=== PATIENT | female | born 1945 | race Asian ===

== ENCOUNTER 2021-10-10 17:29 | Inpatient (IN) | payer OTHER ==
[2021-10-10] MEDS ORDERED: morphine CARPU-JECT 2 MG/1 ML DISP.SYRIN IVPUSH ONE (18:40)
[2021-10-10] MEDS ORDERED: PIPERACILLIN/TAZOB 3.375 GM 3.375 GM in DEXTROSE 5%-WATER - 50 ML IVPB ONE (18:44)
[2021-10-10] MEDS ORDERED: SODIUM CHLORIDE 0.9% 500 ML INFUS.BAG IV ONE ×2 (18:44→21:07)
[2021-10-10] MEDS ORDERED: PIPERACILLIN/TAZOB 3.375 GM 3.375 GM/50 ML BAG IVPB ONE (19:14)
[2021-10-10 19:44] LABS: BASO % 0.1 % (0-2.0); EOS % 0.1 % (0-4.5); HEMATOCRIT 36.1 % (32.4-45.2); HEMOGLOBIN 11.7 GM/dL (10.7-15.3); LYMPH % 6.2 % (8-40); MCHC 32.5 g/dl (32.0-36.0); MEAN CELL VOLUME 95.2 fl (80-96); MEAN PLT VOLUME 8.4 fl (7.5-11.1); MONO % 4.7 % (3.8-10.2); NEUT % 88.9 % (42.8-82.8); PLATELET COUNT 223 10^3/uL (134-434); RBC 3.79 M/mm3 (3.60-5.2); RDW 13.2 % (11.6-15.6); WHITE BLOOD COUNT 18.5 K/mm3 (4.0-10.0)
[2021-10-10 19:56] LABS: INR 1.15 (0.83-1.09); PROTHROMBIN TIME (PATIENT) 13.2 SEC (9.7-13.0)
[2021-10-10 19:58] LABS: ACTIVATED PTT 29.1 SECONDS (25.2-36.5)
[2021-10-10 20:12] LABS: CALCIUM 8.9 mg/dL (8.5-10.1)
[2021-10-10 20:13] LABS: ALBUMIN 3.2 g/dl (3.4-5.0); BLOOD UREA NITROGEN 11.3 mg/dL (7-18)
[2021-10-10 20:16] LABS: CREATININE 0.8 mg/dL (0.55-1.3)
[2021-10-10 20:17] LABS: LACTIC ACID 2.2 mmol/L (0.4-2.0); TOT PROT 6.6 g/dl (6.4-8.2)
[2021-10-10 20:18] LABS: BILIRUBIN,TOTAL 1.4 mg/dL (0.2-1)
[2021-10-10 20:51] LABS: ANISOCYTOSIS 0; MACROCYTOSIS 0; PLATELET ESTIMATE NORMAL
[2021-10-10] MEDS ORDERED: VANCOMYCIN 1 GM in D5W (PRE-DOCKED) 1,000 MG/250 ML IVPB SCH (23:45)
[2021-10-10 23:55] LABS: EPI CELLS 9 /uL (0-25.1); HYALINE CASTS 3 /uL (0-3.1); URINE APPEARANCE Clear; URINE BACTERIA 278 /uL (0-1359); URINE BILIRUBIN Negative (NEGATIVE); URINE COLOR Yellow; URINE GLUCOSE (UA) Negative (NEGATIVE); URINE KETONE Negative (NEGATIVE); URINE LEUK ESTERASE NEGATIVE (NEGATIVE); URINE NITRITE Negative (NEGATIVE); URINE PROTEIN Trace (NEGATIVE); URINE RBC 21 /uL (0-23.9); URINE WBC 214 /uL (0-25.8)
[2021-10-11] MEDS ORDERED: VANCOMYCIN 1 GRAM (PRE-DOCKED) 1,000 MG/250 ML BAG IVPB SCH (00:15)
[2021-10-11] MEDS ORDERED: VANCOMYCIN 750 MG in DEXTROSE 5%-WATER - 150 ML IVPB SCH (00:30)
[2021-10-11 00:42] LABS: LACTIC ACID 2.8 mmol/L (0.4-2.0)
[2021-10-11] MEDS: SODIUM CHLORIDE 1,000 ML IV SCH ×2 (01:00→16:02)
[2021-10-11] MEDS ORDERED: PIPERACILLIN/TAZOB 3.375 GM 3.375 GM/50 ML BAG IVPB ONE ×2 (01:24→09:09)
[2021-10-11] MEDS ORDERED: VANCOMYCIN 1 GRAM (PRE-DOCKED) 1,000 MG/250 ML BAG IVPB ONE (01:24)
[2021-10-11] MEDS: PIPERACILLIN/TAZOB 3.375 GM 3.375 GM in DEXTROSE 5%-WATER - 50 ML IVPB SCH ×5 (03:00→18:28)
[2021-10-11] MEDS ORDERED: ENOXAPARIN NA (PORCINE) 40 MG/0.4 ML DISP.SYRIN SQ ONE (09:09)
[2021-10-11 09:56] LABS: LACTIC ACID 3.3 mmol/L (0.4-2.0)
[2021-10-11] MEDS: ENOXAPARIN NA (PORCINE) 40 MG/0.4 ML DISP.SYRIN SQ SCH ×2 (11:09→12:36)
[2021-10-11] MEDS ORDERED: DEXTROSE 5%-WATER - 50 ML IVPB ONE ×2 (12:22→16:45)
[2021-10-11] MEDS ORDERED: PIPERACILLIN/TAZOBACTAM 3.375 GM VIAL IVPB ONE ×2 (12:22→16:45)
[2021-10-11] MEDS ORDERED: ACETAMINOPHEN 1000 MG/100 ML BAG IVPB PRN (14:44)
[2021-10-11 15:26] VITALS: BMI 26.6
[2021-10-11 16:38] LABS: BASO % 0.2 % (0-2.0); EOS % 0.1 % (0-4.5); HEMATOCRIT 30.3 % (32.4-45.2); HEMOGLOBIN 10.1 GM/dL (10.7-15.3); LYMPH % 9.3 % (8-40); MCH 31.7 pg (25.7-33.7); MCHC 33.4 g/dl (32.0-36.0); MEAN CELL VOLUME 95.1 fl (80-96); MONO % 3.6 % (3.8-10.2); NEUT % 86.8 % (42.8-82.8); PLATELET COUNT 166 10^3/uL (134-434); RBC 3.19 M/mm3 (3.60-5.2); RDW 13.5 % (11.6-15.6); WHITE BLOOD COUNT 13.4 K/mm3 (4.0-10.0)
[2021-10-11] MEDS: NYSTATIN 500,000 UNITS/5 ML SUSPENSION PO ONE ×2 (16:50→19:12)
[2021-10-11] MEDS: VANCOMYCIN 1 GRAM (PRE-DOCKED) 1,000 MG/250 ML BAG IVPB SCH (16:50)
[2021-10-11] MEDS: BENZOCAINE/MENTH/CETYLPYRD CL 1 EACH LOZENGE MM PRN (16:51)
[2021-10-11 17:03] LABS: BLOOD UREA NITROGEN 14.8 mg/dL (7-18)
[2021-10-11 17:06] LABS: CREATININE 0.8 mg/dL (0.55-1.3)
[2021-10-11 17:08] LABS: BILIRUBIN,TOTAL 1.2 mg/dL (0.2-1); TOT PROT 4.9 g/dl (6.4-8.2)
[2021-10-11 17:17] LABS: ALBUMIN 2.2 g/dl (3.4-5.0); CALCIUM 7.5 mg/dL (8.5-10.1)
[2021-10-11 17:29] LABS: ANISOCYTOSIS 1+; MACROCYTOSIS 0; OVALOCYTE 1+; PLATELET ESTIMATE NORMAL
[2021-10-11] MEDS ORDERED: POTASSIUM CHLORIDE TABS 10 MEQ TABLET.ER (FP) PO ONE ×2 (17:42→19:00)
[2021-10-11] MEDS: CLINDAMYCIN 600MG PREMIX IVPB 600 MG/50 ML BAG IVPB SCH (20:24)
[2021-10-11 20:34] LABS: LACTIC ACID 2.3 mmol/L (0.4-2.0)
[2021-10-11] MEDS ORDERED: VANCOMYCIN 1 GM in D5W (PRE-DOCKED) 1,000 MG/250 ML IVPB SCH (23:45)
[2021-10-12] MEDS ORDERED: PIPERACILLIN/TAZOBACTAM 3.375 GM VIAL IVPB ONE ×4 (02:30→17:54)
[2021-10-12] MEDS ORDERED: DEXTROSE 5%-WATER - 50 ML IVPB ONE ×3 (02:30→17:52)
[2021-10-12] MEDS: CLINDAMYCIN 600MG PREMIX IVPB 600 MG/50 ML BAG IVPB SCH ×3 (02:40→18:55)
[2021-10-12] MEDS: PIPERACILLIN/TAZOB 3.375 GM 3.375 GM in DEXTROSE 5%-WATER - 50 ML IVPB SCH ×3 (02:42→18:14)
[2021-10-12] MEDS: VANCOMYCIN 1 GRAM (PRE-DOCKED) 1,000 MG/250 ML BAG IVPB SCH ×2 (04:20→15:14)
[2021-10-12] MEDS: SODIUM CHLORIDE 1,000 ML IV SCH ×4 (06:43→23:24)
[2021-10-12] MEDS: ENOXAPARIN NA (PORCINE) 40 MG/0.4 ML DISP.SYRIN SQ SCH (09:14)
[2021-10-12] MEDS: BENZOCAINE/MENTH/CETYLPYRD CL 1 EACH LOZENGE MM PRN (09:15)
[2021-10-12 09:33] LABS: BASO % 0.1 % (0-2.0); EOS % 1.2 % (0-4.5); HEMOGLOBIN 10.9 GM/dL (10.7-15.3); MCHC 32.2 g/dl (32.0-36.0); MEAN CELL VOLUME 96.4 fl (80-96); MONO % 2.2 % (3.8-10.2); NEUT % 86.5 % (42.8-82.8); PLATELET COUNT 216 10^3/uL (134-434); RBC 3.53 M/mm3 (3.60-5.2); RDW 13.1 % (11.6-15.6); WHITE BLOOD COUNT 17.4 K/mm3 (4.0-10.0)
[2021-10-12 10:02] LABS: ALBUMIN 2.4 g/dl (3.4-5.0); BLOOD UREA NITROGEN 15.9 mg/dL (7-18); CALCIUM 7.9 mg/dL (8.5-10.1); MAGNESIUM 2.2 mg/dL (1.8-2.4)
[2021-10-12 10:03] LABS: BILIRUBIN,TOTAL 0.8 mg/dL (0.2-1); TOT PROT 5.5 g/dl (6.4-8.2)
[2021-10-12 10:05] LABS: PHOSPHOROUS 1.4 mg/dL (2.5-4.9)
[2021-10-12 10:06] LABS: CREATININE 0.7 mg/dL (0.55-1.3); LACTIC ACID 2.7 mmol/L (0.4-2.0)
[2021-10-12] MEDS ORDERED: PROPOFOL 20 ML ONE (15:58)
[2021-10-12] MEDS ORDERED: SUCCINYLCHOLINE CHLORIDE 200 MG/10 ML SYRINGE ONE (15:59)
[2021-10-12] MEDS ORDERED: GENTAMICIN SO4 80 MG/2 ML VIAL ONE (16:04)
[2021-10-12] MEDS ORDERED: LIDOCAINE 1%/EPI 1:100000 (20 ML MULTI DOSE VIAL) ONE (16:04)
[2021-10-12] MEDS ORDERED: MIDAZOLAM HCL 2 MG/2 ML SINGLE DOSE VIAL ONE (16:21)
[2021-10-12] MEDS ORDERED: BUPIVACAINE HCL/PF 0.5% (5MG/ML) 10 ML VIAL ONE (16:26)
[2021-10-12] MEDS ORDERED: LIDOCAINE HCL 1%, 10 MG/ML (20ML VIAL) ONE (16:26)
[2021-10-12] MEDS ORDERED: BUPIVACAINE HCL/PF 0.5% (5 MG/ML) 30 ML VIAL IJ ONE ×2 (16:44)
[2021-10-12] MEDS ORDERED: BENZOCAINE/MENTH/CETYLPYRD CL 1 EACH LOZENGE MM PRN (17:13)
[2021-10-12] MEDS: LACTOBACILLUS ACIDOPHILUS 1 TABLET PO SCH (18:55)
[2021-10-12] MEDS ORDERED: PATIENT'S OWN MEDICATION (NON-FORMULARY) (Brinzolamide 1 DROP Drops) OD SCH (22:00)
[2021-10-12] MEDS ORDERED: PATIENT'S OWN MEDICATION (NON-FORMULARY) (Latanoprost/Pf [Latanoprost 0.005% Eye Drop] 7.5 OU SCH (22:00)
[2021-10-12] MEDS: [UNRECOGNIZED DRUG - OTHER] OD SCH (23:25)
[2021-10-12] MEDS: BRINZOLAMIDE OD SCH (23:25)
[2021-10-12] MEDS: LATANOPROST 0.005% OPHTH SOLN 2.5ML BOTTLE OU SCH (23:26)
[2021-10-13] MEDS ORDERED: PIPERACILLIN/TAZOBACTAM 3.375 GM VIAL IVPB ONE ×3 (02:26→18:10)
[2021-10-13] MEDS ORDERED: DEXTROSE 5%-WATER - 50 ML IVPB ONE ×3 (02:26→18:10)
[2021-10-13] MEDS: CLINDAMYCIN 600MG PREMIX IVPB 600 MG/50 ML BAG IVPB SCH ×3 (02:28→18:18)
[2021-10-13] MEDS: PIPERACILLIN/TAZOB 3.375 GM 3.375 GM in DEXTROSE 5%-WATER - 50 ML IVPB SCH ×3 (03:01→18:18)
[2021-10-13] MEDS: VANCOMYCIN 1 GRAM (PRE-DOCKED) 1,000 MG/250 ML BAG IVPB SCH ×2 (03:45→19:37)
[2021-10-13 09:02] LABS: BASO % 0.1 % (0-2.0); HEMATOCRIT 27.6 % (32.4-45.2); HEMOGLOBIN 9.1 GM/dL (10.7-15.3); LYMPH % 8.9 % (8-40); MCH 31.4 pg (25.7-33.7); MCHC 32.9 g/dl (32.0-36.0); MEAN CELL VOLUME 95.2 fl (80-96); MEAN PLT VOLUME 8.6 fl (7.5-11.1); MONO % 3.4 % (3.8-10.2); NEUT % 86.6 % (42.8-82.8); PLATELET COUNT 197 10^3/uL (134-434); RDW 13.3 % (11.6-15.6); WHITE BLOOD COUNT 15.1 K/mm3 (4.0-10.0)
[2021-10-13 09:15] LABS: CHLORIDE 110 mmol/L (98-107); SODIUM 142 mmol/L (136-145)
[2021-10-13 09:31] LABS: BLOOD UREA NITROGEN 6.8 mg/dL (7-18); CALCIUM 7.2 mg/dL (8.5-10.1); CO2 25 mmol/L (21-32); GLUCOSE,RANDOM 88 mg/dL (74-106)
[2021-10-13 09:35] LABS: CREATININE 0.7 mg/dL (0.55-1.3)
[2021-10-13 09:36] LABS: ANION GAP 7 MMOL/L (8-16)
[2021-10-13] MEDS ORDERED: POTASSIUM CHLORIDE TABS 20 MEQ TABLET.ER (FP) PO ONE (11:30)
[2021-10-13] MEDS: [UNRECOGNIZED DRUG - OTHER] OD SCH ×2 (12:41→21:28)
[2021-10-13] MEDS: LACTOBACILLUS ACIDOPHILUS 1 TABLET PO SCH (12:41)
[2021-10-13] MEDS: BRINZOLAMIDE OD SCH ×2 (12:41→21:28)
[2021-10-13] MEDS: ENOXAPARIN NA (PORCINE) 40 MG/0.4 ML DISP.SYRIN SQ SCH (12:42)
[2021-10-13] MEDS ORDERED: SODIUM CHLORIDE 0.45%/POT 20 MEQ/1,000 ML INFUS.BAG IV SCH (14:30)
[2021-10-13 14:39] LABS: MAGNESIUM 2.2 mg/dL (1.8-2.4)
[2021-10-13] MEDS ORDERED: KCL 10 MEQ IVPB 10 MEQ/100 ML INFUS.BAG IVPB SCH (15:00)
[2021-10-13 16:20] LABS: PHOSPHOROUS 1.6 mg/dL (2.5-4.9)
[2021-10-13] MEDS: KCL 10 MEQ IVPB 10 MEQ/100 ML INFUS.BAG IVPB SCH ×2 (20:23→22:24)
[2021-10-13] MEDS: LATANOPROST 0.005% OPHTH SOLN 2.5ML BOTTLE OU SCH (21:29)
[2021-10-13] MEDS ORDERED: POLYETHYLENE GLYCOL 3350 119 GM BTL PO SCH (22:00)
[2021-10-13] MEDS: POLYETHYLENE GLYCOL (HEALTHYLAX) 3350 17 GM PACKET PO SCH (22:24)
[2021-10-14] MEDS ORDERED: PIPERACILLIN/TAZOBACTAM 3.375 GM VIAL IVPB ONE ×3 (01:50→18:16)
[2021-10-14] MEDS ORDERED: DEXTROSE 5%-WATER - 50 ML IVPB ONE ×3 (01:50→18:16)
[2021-10-14] MEDS: CLINDAMYCIN 600MG PREMIX IVPB 600 MG/50 ML BAG IVPB SCH ×2 (02:09→13:32)
[2021-10-14] MEDS: PIPERACILLIN/TAZOB 3.375 GM 3.375 GM in DEXTROSE 5%-WATER - 50 ML IVPB SCH ×3 (02:09→18:45)
[2021-10-14] MEDS: VANCOMYCIN 1 GRAM (PRE-DOCKED) 1,000 MG/250 ML BAG IVPB SCH ×2 (04:26→16:29)
[2021-10-14] MEDS ORDERED: POTASSIUM PHOSPHATE 30 MM in SODIUM CHLORIDE 500 ML IVPB ONE (07:38)
[2021-10-14] MEDS ORDERED: POTASSIUM CHLORIDE TABS 20 MEQ TABLET.ER (FP) PO ONE ×3 (07:38→20:00)
[2021-10-14 10:10] LABS: BASO % 0.4 % (0-2.0); CHLORIDE 111 mmol/L (98-107); EOS % 1.7 % (0-4.5); HEMATOCRIT 28.9 % (32.4-45.2); HEMOGLOBIN 9.9 GM/dL (10.7-15.3); LYMPH % 20.2 % (8-40); MCH 32.1 pg (25.7-33.7); MCHC 34.2 g/dl (32.0-36.0); MEAN CELL VOLUME 93.7 fl (80-96); MEAN PLT VOLUME 8.4 fl (7.5-11.1); NEUT % 69.7 % (42.8-82.8); PLATELET COUNT 236 10^3/uL (134-434); RBC 3.09 M/mm3 (3.60-5.2); RDW 13.3 % (11.6-15.6); SODIUM 142 mmol/L (136-145); WHITE BLOOD COUNT 9.9 K/mm3 (4.0-10.0)
[2021-10-14 10:12] LABS: CALCIUM 8.2 mg/dL (8.5-10.1)
[2021-10-14 10:13] LABS: BLOOD UREA NITROGEN 4.5 mg/dL (7-18); CO2 24 mmol/L (21-32); GLUCOSE,RANDOM 102 mg/dL (74-106)
[2021-10-14 10:16] LABS: CREATININE 0.7 mg/dL (0.55-1.3); IRON SERUM 42 ug/dL (50-175); TOTAL IRON BINDING CAPACITY 185 ug/dL (250-450)
[2021-10-14 10:23] LABS: ANION GAP 7 MMOL/L (8-16)
[2021-10-14 12:41] LABS: ANISOCYTOSIS 0; MACROCYTOSIS 0
[2021-10-14 12:42] LABS: PLATELET ESTIMATE NORMAL
[2021-10-14] MEDS: POLYETHYLENE GLYCOL (HEALTHYLAX) 3350 17 GM PACKET PO SCH (13:35)
[2021-10-14] MEDS: BRINZOLAMIDE OD SCH ×2 (13:35→22:12)
[2021-10-14] MEDS: LACTOBACILLUS ACIDOPHILUS 1 TABLET PO SCH (13:35)
[2021-10-14] MEDS: [UNRECOGNIZED DRUG - OTHER] OD SCH ×2 (13:35→22:12)
[2021-10-14] MEDS ORDERED: KCL 10 MEQ IVPB 10 MEQ/100 ML INFUS.BAG IVPB SCH ×2 (14:45→20:00)
[2021-10-14] MEDS: KCL 10 MEQ IVPB 10 MEQ/100 ML INFUS.BAG IVPB SCH ×3 (20:02→21:57)
[2021-10-14] MEDS: LATANOPROST 0.005% OPHTH SOLN 2.5ML BOTTLE OU SCH (22:12)
[2021-10-14 23:07] LABS: MAGNESIUM 2.2 mg/dL (1.8-2.4)
[2021-10-14 23:10] LABS: PHOSPHOROUS 1.7 mg/dL (2.5-4.9)
[2021-10-15] MEDS: KCL 10 MEQ IVPB 10 MEQ/100 ML INFUS.BAG IVPB SCH (00:01)
[2021-10-15] MEDS ORDERED: DEXTROSE 5%-WATER - 50 ML IVPB ONE ×3 (01:00→17:46)
[2021-10-15] MEDS ORDERED: PIPERACILLIN/TAZOBACTAM 3.375 GM VIAL IVPB ONE ×3 (01:00→17:46)
[2021-10-15] MEDS: PIPERACILLIN/TAZOB 3.375 GM 3.375 GM in DEXTROSE 5%-WATER - 50 ML IVPB SCH ×3 (02:32→17:53)
[2021-10-15] MEDS: VANCOMYCIN 1 GRAM (PRE-DOCKED) 1,000 MG/250 ML BAG IVPB SCH ×2 (03:12→16:07)
[2021-10-15] MEDS: LACTOBACILLUS ACIDOPHILUS 1 TABLET PO SCH (09:11)
[2021-10-15] MEDS: ENOXAPARIN NA (PORCINE) 40 MG/0.4 ML DISP.SYRIN SQ SCH (09:13)
[2021-10-15] MEDS: [UNRECOGNIZED DRUG - OTHER] OD SCH ×2 (09:13→22:01)
[2021-10-15] MEDS: BRINZOLAMIDE OD SCH ×2 (09:13→22:01)
[2021-10-15 09:26] LABS: HEMATOCRIT 31.7 % (32.4-45.2); HEMOGLOBIN 10.6 GM/dL (10.7-15.3); MCH 31.6 pg (25.7-33.7); MCHC 33.5 g/dl (32.0-36.0); MEAN CELL VOLUME 94.3 fl (80-96); MEAN PLT VOLUME 7.6 fl (7.5-11.1); PLATELET COUNT 315 10^3/uL (134-434); RBC 3.36 M/mm3 (3.60-5.2); RDW 13.3 % (11.6-15.6); WHITE BLOOD COUNT 9.2 K/mm3 (4.0-10.0)
[2021-10-15 09:49] LABS: BLOOD UREA NITROGEN 4.8 mg/dL (7-18)
[2021-10-15 09:52] LABS: ALBUMIN 2.3 g/dl (3.4-5.0); MAGNESIUM 2.3 mg/dL (1.8-2.4)
[2021-10-15 09:55] LABS: CREATININE 0.7 mg/dL (0.55-1.3)
[2021-10-15 09:56] LABS: BILIRUBIN,TOTAL 0.5 mg/dL (0.2-1); TOT PROT 5.8 g/dl (6.4-8.2)
[2021-10-15 12:23] LABS: ANISOCYTOSIS 2+; MACROCYTOSIS 2+
[2021-10-15] MEDS: LATANOPROST 0.005% OPHTH SOLN 2.5ML BOTTLE OU SCH (22:01)
[2021-10-16] MEDS ORDERED: DEXTROSE 5%-WATER - 50 ML IVPB ONE ×3 (01:03→17:24)
[2021-10-16] MEDS ORDERED: PIPERACILLIN/TAZOBACTAM 3.375 GM VIAL IVPB ONE ×3 (01:03→17:24)
[2021-10-16] MEDS: PIPERACILLIN/TAZOB 3.375 GM 3.375 GM in DEXTROSE 5%-WATER - 50 ML IVPB SCH ×3 (01:27→19:38)
[2021-10-16] MEDS: VANCOMYCIN 1 GRAM (PRE-DOCKED) 1,000 MG/250 ML BAG IVPB SCH ×2 (02:45→16:21)
[2021-10-16] MEDS: LACTOBACILLUS ACIDOPHILUS 1 TABLET PO SCH (09:23)
[2021-10-16] MEDS: [UNRECOGNIZED DRUG - OTHER] OD SCH ×2 (09:23→22:03)
[2021-10-16] MEDS: ENOXAPARIN NA (PORCINE) 40 MG/0.4 ML DISP.SYRIN SQ SCH (09:23)
[2021-10-16] MEDS: BRINZOLAMIDE OD SCH ×2 (09:23→22:03)
[2021-10-16 10:51] LABS: HEMOGLOBIN 10.9 GM/dL (10.7-15.3); MCHC 34.1 g/dl (32.0-36.0); MEAN CELL VOLUME 93.9 fl (80-96); MEAN PLT VOLUME 7.5 fl (7.5-11.1); PLATELET COUNT 334 10^3/uL (134-434); RBC 3.41 M/mm3 (3.60-5.2); RDW 13.4 % (11.6-15.6); WHITE BLOOD COUNT 8.3 K/mm3 (4.0-10.0)
[2021-10-16 11:08] LABS: CALCIUM 8.3 mg/dL (8.5-10.1)
[2021-10-16 11:09] LABS: BLOOD UREA NITROGEN 4.5 mg/dL (7-18)
[2021-10-16 11:12] LABS: CREATININE 0.7 mg/dL (0.55-1.3)
[2021-10-16 11:52] LABS: ANISOCYTOSIS 0; MACROCYTOSIS 0
[2021-10-16] MEDS: POTASSIUM CHLORIDE ORAL LIQUID 20 MEQ/15 ML PO SCH (22:03)
[2021-10-16] MEDS: LATANOPROST 0.005% OPHTH SOLN 2.5ML BOTTLE OU SCH (22:04)
[2021-10-17] MEDS ORDERED: DEXTROSE 5%-WATER - 50 ML IVPB ONE ×3 (01:12→17:18)
[2021-10-17] MEDS ORDERED: PIPERACILLIN/TAZOBACTAM 3.375 GM VIAL IVPB ONE ×3 (01:12→17:18)
[2021-10-17] MEDS: PIPERACILLIN/TAZOB 3.375 GM 3.375 GM in DEXTROSE 5%-WATER - 50 ML IVPB SCH ×3 (01:17→17:51)
[2021-10-17] MEDS: VANCOMYCIN 1 GRAM (PRE-DOCKED) 1,000 MG/250 ML BAG IVPB SCH (03:10)
[2021-10-17] MEDS: POTASSIUM CHLORIDE ORAL LIQUID 20 MEQ/15 ML PO SCH ×2 (09:37→09:48)
[2021-10-17] MEDS: LACTOBACILLUS ACIDOPHILUS 1 TABLET PO SCH (09:42)
[2021-10-17] MEDS: [UNRECOGNIZED DRUG - OTHER] OD SCH ×2 (09:42→21:57)
[2021-10-17] MEDS: BRINZOLAMIDE OD SCH ×2 (09:42→21:57)
[2021-10-17] MEDS: ENOXAPARIN NA (PORCINE) 40 MG/0.4 ML DISP.SYRIN SQ SCH (09:43)
[2021-10-17 10:24] LABS: HEMATOCRIT 29.8 % (32.4-45.2); HEMOGLOBIN 10.3 GM/dL (10.7-15.3); MCH 32.2 pg (25.7-33.7); MCHC 34.6 g/dl (32.0-36.0); MEAN CELL VOLUME 93.1 fl (80-96); MEAN PLT VOLUME 7.1 fl (7.5-11.1); PLATELET COUNT 344 10^3/uL (134-434); RDW 13.1 % (11.6-15.6); WHITE BLOOD COUNT 7.7 K/mm3 (4.0-10.0)
[2021-10-17 10:40] LABS: BLOOD UREA NITROGEN 5.8 mg/dL (7-18); CALCIUM 8.7 mg/dL (8.5-10.1)
[2021-10-17] MEDS: POTASSIUM CHLORIDE TABS 20 MEQ TABLET.ER (FP) PO SCH ×2 (11:15→21:57)
[2021-10-17] MEDS: ACETAMINOPHEN 325 MG TABLET (FP) PO PRN (11:28)
[2021-10-17] MEDS: LATANOPROST 0.005% OPHTH SOLN 2.5ML BOTTLE OU SCH (21:57)
[2021-10-18] MEDS ORDERED: PIPERACILLIN/TAZOBACTAM 3.375 GM VIAL IVPB ONE ×3 (02:06→16:52)
[2021-10-18] MEDS ORDERED: DEXTROSE 5%-WATER - 50 ML IVPB ONE ×3 (02:06→16:52)
[2021-10-18] MEDS: PIPERACILLIN/TAZOB 3.375 GM 3.375 GM in DEXTROSE 5%-WATER - 50 ML IVPB SCH ×3 (02:18→17:24)
[2021-10-18] MEDS: ACETAMINOPHEN 325 MG TABLET (FP) PO PRN (03:24)
[2021-10-18 10:06] LABS: CALCIUM 8.6 mg/dL (8.5-10.1)
[2021-10-18 10:07] LABS: BLOOD UREA NITROGEN 9.1 mg/dL (7-18)
[2021-10-18 10:10] LABS: CREATININE 1.1 mg/dL (0.55-1.3)
[2021-10-18] MEDS: POTASSIUM CHLORIDE TABS 20 MEQ TABLET.ER (FP) PO SCH ×2 (10:54→22:03)
[2021-10-18] MEDS: LACTOBACILLUS ACIDOPHILUS 1 TABLET PO SCH (10:54)
[2021-10-18] MEDS: ENOXAPARIN NA (PORCINE) 40 MG/0.4 ML DISP.SYRIN SQ SCH (10:55)
[2021-10-18] MEDS: BRINZOLAMIDE OD SCH (22:02)
[2021-10-18] MEDS: [UNRECOGNIZED DRUG - OTHER] OD SCH (22:02)
[2021-10-18] MEDS: LATANOPROST 0.005% OPHTH SOLN 2.5ML BOTTLE OU SCH (22:03)
[2021-10-19] MEDS ORDERED: DEXTROSE 5%-WATER - 50 ML IVPB ONE ×2 (00:56→10:06)
[2021-10-19] MEDS ORDERED: PIPERACILLIN/TAZOBACTAM 3.375 GM VIAL IVPB ONE ×2 (00:56→10:06)
[2021-10-19] MEDS: PIPERACILLIN/TAZOB 3.375 GM 3.375 GM in DEXTROSE 5%-WATER - 50 ML IVPB SCH ×2 (02:54→10:13)
[2021-10-19 09:27] VITALS: PULSE 74
[2021-10-19] MEDS: ENOXAPARIN NA (PORCINE) 40 MG/0.4 ML DISP.SYRIN SQ SCH (10:12)
[2021-10-19] MEDS: POTASSIUM CHLORIDE TABS 20 MEQ TABLET.ER (FP) PO SCH (10:13)
[2021-10-19] MEDS: LACTOBACILLUS ACIDOPHILUS 1 TABLET PO SCH (10:13)
[2021-10-19] MEDS ORDERED: LINEZOLID 600 MG TABLET (RESTRICTED TO ID) PO SCH (12:00)
[2021-10-19 14:03] VITALS: BP 144/70; TEMP 98.4
== END 2021-10-19 17:04 | disposition home or self-care (01) | DRG 603 ==
LOC: JER 17:29 → JERBED 23:57 → J5S 10-11 12:00
PROVIDERS: ADMIT Internal Medicine
PROC: 0J980ZZ Drainage of Abdomen Subcutaneous Tissue and Fascia, Open Approach (ICD-10-PCS; principal; 2021-10-12 12:00)
PROC: 0DB58ZX Excision of Esophagus, Via Natural or Artificial Opening Endoscopic, Diagnostic (ICD-10-PCS; 2021-10-15)
PROC: 0DB68ZX Excision of Stomach, Via Natural or Artificial Opening Endoscopic, Diagnostic (ICD-10-PCS; 2021-10-15)
PROC: 0DB98ZX Excision of Duodenum, Via Natural or Artificial Opening Endoscopic, Diagnostic (ICD-10-PCS; 2021-10-15)
DX: L03.314 Cellulitis of groin (principal); J98.11 Atelectasis; I31.3 Pericardial effusion (noninflammatory); E87.2 Acidosis; N73.0 Acute parametritis and pelvic cellulitis; L03.311 Cellulitis of abdominal wall; L03.319 Cellulitis of trunk, unspecified; D72.829 Elevated white blood cell count, unspecified; N28.1 Cyst of kidney, acquired; R74.01 Elevation of levels of liver transaminase levels; K76.0 Fatty (change of) liver, not elsewhere classified; K29.50 Unspecified chronic gastritis without bleeding; K44.9 Diaphragmatic hernia without obstruction or gangrene; N83.201 Unspecified ovarian cyst, right side; R19.7 Diarrhea, unspecified
CPT/HCPCS: 36415; 74177-TC; 76705-TC; 80048; 80053; 81003; 83036; 83540; 83550; 83605; 83615; 83735; 84100; 84132; 85025; 85027; 85610; 85730; 86140; 86705; 86850; 86900; 86901; 87040; 87077; 87086; 87177; 87186; 87209; 87324; 87340; 87449; 87517; 87522; 88305-TC; 93306-TC; 94010; 97116-GP; 97161-GP; 99285-25; C9803; G0480; Q9967; U0003; U0005